=== PATIENT | male | born 1995 | race Caucasian/White ===

== ENCOUNTER 2022-01-04 14:18 | Emergency (ER) | payer BC, SELFPAY ==
[2022-01-04 14:19] VITALS: BP 147/55; PULSE 80; RESP 16; TEMP 36.6; O2SAT 99; BMI 24.3
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
[2022-01-04] MEDS: HYDROcodone Bitartrate/Apap 5/325 Tablet PO (14:51)
== END 2022-01-04 16:40 | disposition home or self-care (01) ==
PROVIDERS: Emergency Provider Emergency Medicine; Visit Provider Emergency Medicine
DX: S43.005A Unspecified dislocation of left shoulder joint, initial encounter (principal); V86.55XA Driver of 3- or 4- wheeled all-terrain vehicle (ATV) injured in nontraffic accident, initial encounter; Z87.891 Personal history of nicotine dependence
CPT/HCPCS: 70450; 72125; 73030; 99283